=== PATIENT | female | born 1965 | race Caucasian/White ===

== ENCOUNTER 2017-03-10 06:52 | Day surgery (SDC) | payer BC ==
[~2017-03-10] VITALS: Ht 165.1 cm; Wt 85.0 kg
[~2017-03-10 06:52] MED LIST: BONINE25 MG PO; ELAVIL10 MG PO; EPIPEN ADU0.3 MG/0.3 IM; MICROZIDE12.5 M1 PO; NEURONTIN100 MG PO; OMNARIS12.5 GM IH; OXYCODONE HCL10 MG PO; PROTONIX40 MG PO; REQUIP2 MG PO; SYMBICORT60 INHALAT IH; VENTOLIN HFA18 GM IH; ZOLPIDEM TART12.5 MG PO
== END 2017-03-10 08:45 | disposition home or self-care (01) ==
LOC: PAIN 06:52 → SDC 07:30 → PAIN 08:45
DX: M46.1 Sacroiliitis, not elsewhere classified (principal); M53.3 Sacrococcygeal disorders, not elsewhere classified; M51.36 Other intervertebral disc degeneration, lumbar region; M47.816 Spondylosis without myelopathy or radiculopathy, lumbar region; M96.1 Postlaminectomy syndrome, not elsewhere classified; E78.5 Hyperlipidemia, unspecified; K21.9 Gastro-esophageal reflux disease without esophagitis; J45.909 Unspecified asthma, uncomplicated; Z87.891 Personal history of nicotine dependence; Z79.891 Long term (current) use of opiate analgesic
CPT/HCPCS: J1030; J2250; J3010; S0020

== ENCOUNTER 2017-06-16 06:43 | Day surgery (SDC) | payer BC ==
[~2017-06-16] VITALS: Ht 165.1 cm; Wt 80.7 kg
[2017-06-16] MEDS ORDERED: TYLENOL REGULA325 MG PO (07:07)
[2017-06-16] MEDS ORDERED: SIMVASTATIN10 MG PO (07:09)
[2017-06-16] MEDS ORDERED: ASPIRIN325 MG PO (07:10)
== END 2017-06-16 08:54 | disposition home or self-care (01) ==
LOC: PAIN 06:43 → SDC 07:30 → PAIN 08:54
DX: M47.816 Spondylosis without myelopathy or radiculopathy, lumbar region (principal); M54.5 Low back pain; G89.29 Other chronic pain; M96.1 Postlaminectomy syndrome, not elsewhere classified; M51.36 Other intervertebral disc degeneration, lumbar region; E78.5 Hyperlipidemia, unspecified; K21.9 Gastro-esophageal reflux disease without esophagitis; J45.909 Unspecified asthma, uncomplicated; M53.3 Sacrococcygeal disorders, not elsewhere classified; Z87.891 Personal history of nicotine dependence
CPT/HCPCS: J1030; J2250; J3010; S0020

== ENCOUNTER 2017-06-23 06:34 | Day surgery (SDC) | payer BC ==
[~2017-06-23] VITALS: Ht 165.1 cm; Wt 79.8 kg
[~2017-06-23 06:34] MED LIST changes: +ASPIRIN325 MG PO; +SIMVASTATIN10 MG PO; +TYLENOL REGULA325 MG PO
== END 2017-06-23 08:50 | disposition home or self-care (01) ==
LOC: PAIN 06:34 → SDC 07:30 → PAIN 08:50
PROC: 015B3ZZ Destruction of Lumbar Nerve, Percutaneous Approach (ICD-10-PCS; principal; 2017-06-23)
DX: M47.816 Spondylosis without myelopathy or radiculopathy, lumbar region (principal); M96.1 Postlaminectomy syndrome, not elsewhere classified; M51.36 Other intervertebral disc degeneration, lumbar region; T85.12 Displacement of implanted electronic stimulator of nervous system; E78.00 Pure hypercholesterolemia, unspecified; M19.90 Unspecified osteoarthritis, unspecified site; K21.9 Gastro-esophageal reflux disease without esophagitis; J45.909 Unspecified asthma, uncomplicated; Z87.891 Personal history of nicotine dependence; Z88.1 Allergy status to other antibiotic agents; Z88.8 Allergy status to other drugs, medicaments and biological substances
CPT/HCPCS: J1030; J1885; J2250; J3010; S0020